=== PATIENT | female | born 1970 | race Two or more races ===

== ENCOUNTER 2022-01-08 05:40 | Day surgery (SDC) | payer OTHER ==
[~2022-01-08 05:40] MED LIST: LOVENOX30 MG/0.3 SUBCUTANEO
[2022-01-08] MEDS ORDERED: ACETAMINOPHEN-1 EAC2 PO (10:19)
[2022-01-08] MEDS ORDERED: NAPROXEN SODIU550 MG PO (10:20)
[2022-01-08] MEDS ORDERED: COLACE100 MG PO (10:21)
== END 2022-01-08 13:05 | disposition home or self-care (01) ==
LOC: CIR.AMB 05:40
PROVIDERS: ATTEND Obstetrics & Gynecology
DX: N83.201 Unspecified ovarian cyst, right side (principal); F17.210 Nicotine dependence, cigarettes, uncomplicated; Z85.3 Personal history of malignant neoplasm of breast